=== PATIENT | male | born 1945 | race Caucasian/White ===

== ENCOUNTER → 2017-02-09 | Outpatient (CLI) | payer MEDICARE, BC ==
[~2017-02-09] MED LIST: ASPIRIN81 M1 PO; ASPIRIN81 M2 PO; CARDURA2 MG PO; COZAAR PO; DIABETA5 M1 PO; EFFIENT10 MG PO; FISH OIL 1,2001 EAC3 PO; FOLIC ACID1 MG PO; GLUCOPHAGE500 MG PO; ISORDIL PO; K-DUR20 ME1 PO; LASIX20 MG PO; LOPRESSOR PO; LORTAB 10-5001 EACH PO; METFORMIN HCL500 M1 PO; METFORMIN HCL500 M2 PO; ONGLYZA5 MG PO; SIMVASTATIN40 MG; SPIRONOLACTONE50 MG PO; TANZEUM50 MG/0.5 SQ; TRADJENTA5 MG PO; VITAMIN D250000 UNIT PO; VOLTAREN75 MG PO; VYTORIN 10-40 T1 TAB PO; ZETIA PO
--- NOTE | ~2017-02-09 | CR58 ---
[facility] A Service of [facility] & [facility] RADIOLOGY TEXT RESULTS PATIENT: YOGESH GOLD LOCATION: [facility] : 43 UNIT #: [id number] AGE: [address]: Jay Junior MD SEX: M ORDER DR: [id number] [facility] [address] [place], [place] [address] [id number] O MR#: [id number] Acc #: [id number] NAME: YOGESH GOLD : 1945 SEX: M STUDY DATE/TIME: 02/09/2017 13:31 UNIT: [facility] ROOM: STUDY DESCRIPTION: CR Cervical Spine 2 or 3 Views Attending Physician: Jay Junior M.D. Referring Physician: Jay Junior M.D. Ordering Physician: Jay Junior M.D. Primary Care Physician: Sg Grimes M.D. MEDICAL IMAGING REPORT This report is preliminary unless electronic signature is present EXAM Three views cervical spine. INDICATIONS Neck pain. Patient had an abnormal brain scan performed February 09, 2017, which showed some abnormal uptake through the lower cervical spine and near the cervicothoracic junction. FINDINGS No acute fracture or subluxation of the cervical spine is identified. I do not see any aggressive osseous abnormalities to suggest osseous metastatic disease. The patient has degenerative changes in the spine, and there is anterolisthesis of C4 on C5. There is no prevertebral soft tissue swelling. 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 IMPRESSION No suspicious osseous lesions identified to suggest osseous metastatic disease. Uptake identified. Bone scan is favored to be secondary to degenerative disease. Dictated by... Ann Martinez M.D. THIS IS AN ELECTRONICALLY VERIFIED REPORT Ann Martinez M.D. at 02/10/2017 5:01 PM AFF/jt TD: 02/10/2017 15:21 [facility] A Service of [facility] & [facility] RADIOLOGY TEXT RESULTS PATIENT: YOGESH GOLD [facility] [id number] : 43 UNIT #: [id number] AGE: [address]: Jay Junior MD SEX: M ORDER DR: JOB #: [id number] MEDICAL IMAGING REPORT Page 1 of 1 COPY
--- NOTE | ~2017-02-09 | CT2 ---
[facility] A Service of [facility] & [facility] RADIOLOGY TEXT RESULTS PATIENT: YGOESH GOLD LOCATION: [facility] : 44 UNIT #: [id number] AGE: [address]: Jay Junior MD SEX: M ORDER DR: [id number] [facility] [address] [place], [place] [address] [id number] O MR#: [id number] Acc #: [id number] NAME: YOGESH GOLD : 1945 SEX: M STUDY DATE/TIME: 02/09/2017 10:15 UNIT: CN ROOM: STUDY DESCRIPTION: CT Abd and Pelv W Cont Attending Physician: Jay Junior M.D. Referring Physician: Jay Junior M.D. Ordering Physician: Jay Junior M.D. Primary Care Physician: Sg Grimes M.D. MEDICAL IMAGING REPORT This report is preliminary unless electronic signature is present EXAM Abdomen and pelvis CT with contrast 02/09/2017 INDICATIONS 71-year-old male with prostate cancer diagnosis made 2 months ago. Clinical concern for metastatic disease. Observation for suspected malignant neoplasm and active malignancy. No history of chemotherapy or radiation therapy. TECHNIQUE Contrast-enhanced abdomen and pelvis CT was performed and compared with 11/18/2009. This CT exam was performed with one or more of the following radiation dose reduction techniques: automatic exposure control, adjustment of mA and/or kV according to patient size, and iterative reconstruction. 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 No effusion. Aorta demonstrates atherosclerotic change but no aneurysm or dissection. There is ectasia of the distal abdominal aorta and common iliac arteries. Spleen and left adrenal gland unremarkable. Stable nodule in the right adrenal gland, therefore benign. Pancreas unremarkable. Gallbladder contracted. Liver unremarkable. Kidneys demonstrate no hydronephrosis. There are bilateral renal cysts. There are bilateral nonobstructing stones. One stone in the right kidney is at the level of the renal pelvis and measures 5 mm but there is no hydronephrotic change of the right kidney or inflammatory change at this time. There are new or slightly enlarged lymph nodes in the retroperitoneum. Index node posterior to the IVC on the right measures a centimeter, not clearly demonstrated previously. New/enlarging aortocaval node more inferiorly measures 14 mm short axis with a potential correlate on the prior study that measured only about 4 mm. Left periaortic lymph node measures 10 mm short axis. [facility] A Service of [facility] & [facility] RADIOLOGY TEXT RESULTS PATIENT: YOGESH GOLD LOCATION: [facility] : 43 UNIT #: [id number] AGE: [address]: Jay Junior MD SEX: M ORDER DR: Please note there are additional lymph nodes in the retroperitoneum. The above reference nodes are provided for index purposes. CT pelvis: Bladder unremarkable. The prostate measures 4.3 x 4.4 cm. Correlate with PSA levels and physical exam findings. There are vascular calcifications in the pelvis. No drainable fluid collection. Bowel demonstrates no obstruction or inflammatory change. Appendix not identified. No secondary sign of appendicitis or inflammatory change in the right lower quadrant. There is abnormal adenopathy in the pelvic sidewalls bilaterally. Largest conglomeration of nodes in the left hemipelvis measures 16 mm short axis. The largest conglomeration in the right hemipelvis also measures 16 mm. These are new compared to the prior CT as well. Additional smaller indeterminate pelvic lymph nodes are present. No compression fracture or malalignment. Postop changes of posterior fusion at L4-5. No suspicious bone lesion. IMPRESSION 1. New or increasing adenopathy in the retroperitoneum and particularly in the pelvis where there are enlarged pelvic sidewall lymph nodes bilaterally. Findings are suspicious for metastatic disease given history of prostate cancer. Suggest correlation with PSA levels. 2. Nonobstructing renal stones bilaterally. 3. No suspicious bone lesions. Postop changes of posterior fusion at L4-5. 4. Benign right adrenal nodule, unchanged from 2010. Dictated by... Abner Skelton M.D. THIS IS AN ELECTRONICALLY VERIFIED REPORT Abner Skelton M.D. at 02/10/2017 8:28 AM CESAR/mauro TD: 02/09/2017 18:12 JOB #: [id number] MEDICAL IMAGING REPORT Page 1 of 1 COPY
--- NOTE | ~2017-02-09 | NM8 ---
[facility] A Service of [facility] & [facility] RADIOLOGY TEXT RESULTS PATIENT: YOGESH GOLD LOCATION: [facility] : 43 UNIT #: [id number] AGE: [address]: Jay Junior MD SEX: M ORDER DR: [id number] [facility] [address] [place], [place] [address] [id number] O MR#: [id number] Acc #: [id number] NAME: YOGESH GOLD : 1945 SEX: M STUDY DATE/TIME: 02/09/2017 11:55 UNIT: [facility] ROOM: STUDY DESCRIPTION: SD Bone or Joint Whole Body Attending Physician: Jay Junior M.D. Referring Physician: Jay Junior M.D. Ordering Physician: Jay Junior M.D. Primary Care Physician: Sg Grimes M.D. MEDICAL IMAGING REPORT This report is preliminary unless electronic signature is present EXAM Whole-body bone scan HISTORY Elevated PSA. Recently diagnosed with prostate cancer December 2016. COMPARISON C-spine series 02/09/2017. CT abdomen and pelvis 02/09/2017. TECHNIQUE Whole-body selected spot images were performed of the axial and appendicular skeleton following intravenous administration of 30 mCi Tc-99m MDP. FINDINGS Examination demonstrates increased uptake within the medial compartment of both knees and also within the feet bilaterally. Pattern is most compatible with moderately advanced degenerative joint disease. There is also increased uptake in the lower cervical spine near the cervicothoracic junction. Review of the patient's C-spine series demonstrates apparent acquired fusion across the C6-7 disc space and this may represent the sequela of spondyloarthropathy. There is multilevel degenerative change in the remainder the cervical spine, as well as multilevel facet disease. No findings identified to suggest metastatic disease. No abnormal uptake identified within the long bones, pelvis, ribs, skull or lumbar spine to suggest osseous metastatic disease. Bilateral renal activity and normal bladder activity noted. IMPRESSION Multifocal increased uptake most prominent within the medial compartment of both knees, both feet, [id number], and in the lower cervical spine. Changes in the lower extremity are felt to be STS. [facility] A Service of [facility] & [facility] RADIOLOGY TEXT RESULTS PATIENT: YOGESH GOLD LOCATION: [facility] : 43 UNIT #: [id number] AGE: [address]: Jay Junior MD SEX: M ORDER DR: degenerative in nature. The abnormality in the lower cervical spine is felt to be secondary to underlying spondyloarthropathy and degenerative disc disease. 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 No convincing evidence that this represents metastatic disease with no sclerotic lesion or bone destruction identified. The remainder of the visualized skeleton unremarkable without evidence to suggest osseous metastatic disease. Dictated by... Garrett Pittman M.D. THIS IS AN ELECTRONICALLY VERIFIED REPORT Garrett Pittman M.D. at 02/11/2017 4:04 PM Dian TD: 02/10/2017 03:21 JOB #: [id number] MEDICAL IMAGING REPORT Page 1 of 1 COPY
[2017-02-09 14:06] LABS: POC - GFR >60.0 mL/min (>60)
== END | disposition home or self-care (01) ==
LOC: CNUC 08:00
PROVIDERS: Urology
DX: C61 Malignant neoplasm of prostate (principal); R59.0 Localized enlarged lymph nodes; N20.0 Calculus of kidney; E27.8 Other specified disorders of adrenal gland; R93.7 Abnormal findings on diagnostic imaging of other parts of musculoskeletal system; Z98.1 Arthrodesis status
CPT/HCPCS: 72040; 74177; 78306; 82565; A9503; Q9967